=== PATIENT | female | born 1975 | race Caucasian/White ===

== ENCOUNTER → 2024-12-10 | Outpatient (CLI) | payer BC ==
[~2024-12-10] MED LIST: HYOSCYAMINE0.125 M5 PO; LEXAPRO10 MG PO; PRILOSEC40 MG PO; VICO75300 PO
== END | disposition home or self-care (01) ==
LOC: US 13:57
PROVIDERS: ATTEND Obstetrics & Gynecology
DX: D25.1 Intramural leiomyoma of uterus (principal); N92.0 Excessive and frequent menstruation with regular cycle; N85.8 Other specified noninflammatory disorders of uterus

== ENCOUNTER → 2025-01-06 | Day surgery (SDC) | payer BC ==
[~2025-01-06] VITALS: Ht 160 cm; Wt 68.0 kg
[~2025-01-06] MED LIST changes: +ATORVASTATIN CA20 M1 PO; +ATORVASTATIN CALCIUM 20 MG TAB PO SCH; +BRUKINSA80 MG PO; +Dexamethasone Sodium Phospha 4 MG/ML VIAL IV ONE; +Lactated Ringer's Solution 1,000 ML IV ONE; +Lidocaine Hydrochloride 2% 5 ML SDV IV ONE; +Midazolam Hydrochloride 2 MG/2 ML VIAL IV ONE; +Ondansetron Hydrochloride 4 MG/2 ML VIAL IV ONE; +PANTOPRAZOLE SO40 MG PO; +PROPOFOL 200 MG/20 ML VIAL IV ONE; +SEVOFLURANE 250 ML BOT INH ONE
[2025-01-06 08:20] VITALS: BP 132/75
[2025-01-06 09:49] VITALS: BP 109/67
[2025-01-06 10:04] VITALS: BP 103/64
[2025-01-06 10:19] VITALS: BP 111/69
[2025-01-06 10:34] VITALS: BP 116/72
[2025-01-06 10:49] VITALS: BP 114/60
== END | disposition home or self-care (01) ==
LOC: SDC 01-02 12:30
PROVIDERS: ATTEND Obstetrics & Gynecology
DX: N94.6 Dysmenorrhea, unspecified (principal); N92.0 Excessive and frequent menstruation with regular cycle; N72 Inflammatory disease of cervix uteri; N85.8 Other specified noninflammatory disorders of uterus; C85.90 Non-Hodgkin lymphoma, unspecified, unspecified site; G47.30 Sleep apnea, unspecified; K21.9 Gastro-esophageal reflux disease without esophagitis; K58.9 Irritable bowel syndrome, unspecified; K29.70 Gastritis, unspecified, without bleeding; E78.00 Pure hypercholesterolemia, unspecified; J40 Bronchitis, not specified as acute or chronic; F41.9 Anxiety disorder, unspecified; Z88.0 Allergy status to penicillin; Z88.8 Allergy status to other drugs, medicaments and biological substances; Z98.890 Other specified postprocedural states; Z79.899 Other long term (current) drug therapy